=== PATIENT | female | born 1975 | race Caucasian/White ===

== ENCOUNTER 2018-04-06 07:12 | Emergency (ER) | payer BC ==
--- NOTE | 2018-04-06 07:21 | UC ---
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 She states post nasal dripping and bi-lat ear fullness. Denies fever or sinus and chest congestion Pleasant 43 yo female c/o progressive sore throat since Saturday (today is Saturday ). General malaise, feeling bad. No rash. Initially felt like irritation, but now feels like knife blades in throat. + post nasal drip. No rash. Mild cough, attributes to post nasal drip. No GI issues. + ear fullness / pressure. No vis changes. 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 - History of Current Complaint Stated Complaint: SORE THROAT Hx Obtained From: Patient - Allergies/Home Medications Allergies/Adverse Reactions: Allergies Allergy/AdvReac Type Severity Reaction Status Date / Time bacitracin Allergy Hives Verified 04/06/18 07:32 PMH/Surg Hx/FS Hx/Imm Hx Previously Healthy: Yes - Surgical History Surgical History: None - Family History Known Family History: Positive: None Review of Systems All Other Systems Reviewed And Are Negative: Yes Constitutional: Positive: Other - see hpi Skin: Positive: Negative Eyes: Positive: Other - see hpi ENT: Positive: Other - see hpi Respiratory: Positive: Other - see hpi Cardiovascular: Positive: Negative Gastrointestinal: Positive: Negative Genitourinary: Positive: Negative Motor: Positive: Negative Neurovascular: Positive: Negative Musculoskeletal: Positive: Negative Neurological: Positive: Negative Psychological: Positive: Negative Is Patient Immunocompromised?: No Physical Exam Triage Information Reviewed: Yes Appearance: Well-Nourished Vital Signs Reviewed: Yes Eye Exam: Normal ENT: Positive: Pharyngeal erythema - Post pharynx very red, nonpurulent. Uvula midline, mild edema, not obstructive. Tongue ok., Nasal congestion, TM dull - dull au Neck exam: Normal Neck: Positive: Supple, Nontender, No Lymphadenopathy Respiratory Exam: Normal Respiratory: Positive: Chest non-tender, Lungs clear, Normal breath sounds, No respiratory distress, No accessory muscle use Cardiovascular Exam: Normal Cardiovascular: Positive: RRR, No Murmur, Pulses Normal, Brisk Capillary Refill Abdominal Exam: Normal Abdomen Description: Positive: Nontender Musculoskeletal Exam: Normal - gait steady Neurological Exam: Normal - grossly nonfocal Psychological Exam: Normal - conversing easily and appropriately Throat Pain/Nasal Course/Dx - Course Course Of Treatment: RST negative. Does not think she has had mononucleosis, will check blood work. While sx could be viral related, the severity of redness and discomfort are concerning. Neg strep does not indicate neg other. Will start abx (azithromycin) plus 2 days prednisone. She will seek medical attention for worse problems or no improvement. Questions as posed answered to the best of my ability. - Differential Dx/Diagnosis Provider Diagnosis: Acute pharyngitis Discharge - Sign-Out/Discharge Documenting (check all that apply): Patient Departure All imaging exams completed and their final reports reviewed: No Studies - Discharge Plan Condition: Stable Disposition: HOME Prescriptions: Azithromycin 500 mg PO DAILY #5 tablet predniSONE [Prednisone 20 MG TAB] 20 mg PO DAILY #4 tablet Patient Education Materials: Pharyngitis (ED) Referrals: No Primary Care Phys,NOPCP [Primary Care Provider] - [facility] [place] [facility] [Outside] Additional Instructions: Please follow up with a primary care physician as soon as you are able. Seek medical attention for worse or new problems. Your strep throat test was negative. Mononucleosis blood testing was drawn today. - Billing Disposition and Condition Condition: STABLE Disposition: Home
[2018-04-06 07:32] VITALS: BP 129/68
--- NOTE | 2018-04-07 07:20 | UC ---
- Progress Note Progress Note: + mono Please call pt - supportive care motrin/apap hydrate no contact sports until recheck 04/07/18 Course/Dx - Diagnoses Provider Diagnoses: Acute pharyngitis Discharge - Sign-Out/Discharge Documenting (check all that apply): Post-Discharge Follow Up All imaging exams completed and their final reports reviewed: No Studies - Discharge Plan Condition: Stable Disposition: HOME Prescriptions: Azithromycin 500 mg PO DAILY #5 tablet predniSONE [Prednisone 20 MG TAB] 20 mg PO DAILY #4 tablet Patient Education Materials: Pharyngitis (ED) Referrals: [facility] [place] [facility] [Outside] No Primary Care Phys,NOPCP [Primary Care Provider] - Additional Instructions: Please follow up with a primary care physician as soon as you are able. Seek medical attention for worse or new problems. Your strep throat test was negative. Mononucleosis blood testing was drawn today. - Billing Disposition and Condition Condition: STABLE Disposition: Home
== END 2018-04-06 08:11 | disposition home or self-care (01) ==
LOC: MERGE 07:12 → EDSEX 07:12 → UCCORT 07:12
DX: J02.9 Acute pharyngitis, unspecified (principal); Z88.1 Allergy status to other antibiotic agents
CPT/HCPCS: 36415; 86308; 87651; 99212; G0463

== ENCOUNTER 2019-07-05 07:52 | Emergency (ER) | payer BC ==
--- OUTSIDE RECORDS SUMMARY | 2019-07-05 07:59 | XMS REPORT | Continuity of Care Document ---
:1975 External Reference #:[id number] Author Name Mariah Lopez PA (transmitted by agent of provider Jorgito Dow ) Address [address], [place] [address] [place] [address] Care Team Providers Name Role Phone Liliya Esposito MD, PHD - Family Care Team Information Hand Assembler [phone] Medicine Problems Description No Information Available Social History Type Date Description Comments Sex Unknown Tobacco Use Start: Unknown Never Smoked Cigarettes Smoking Status Reviewed: 04/14/19 Never Smoked Cigarettes ETOH Use Rarely consumes alcohol Tobacco Use Start: Unknown Patient denies history of smoking Recreational Drug Use Denies Drug Use Allergies, Adverse Reactions, Alerts Active Allergies Reaction Severity Comments Date Bacitracin Hives 04/10/2019 Medications Active Medications SIG Qnty Indications Ordering Provider Date D3 High Potency 1 caps by mouth 90caps Liliya Esposito, 04/16/2019 125mcg every day , PHD (5000 Ut) Capsules Ergocalciferol 1 cap by mouth 14caps E55.9 Liliya Esposito, 04/10/2019 1.25mg every week , PHD (60117 Ut) Capsules Magnesium Gluconate 1 tab by mouth 60tabs M62.838 Liliya Esposito, 2018 three times a , PHD 500(27mg) mg Tablets day as needed for muscle cramps G43.909 Aspirin 81 Low Dose 6 tab by mouth 90units G43.909 Liliya Esposito, 2018 first sign of , PHD 81mg Chewtabs migraine Co Q-10 Maximum 1 caps by mouth 90caps G43.909 Liliya Esposito, 04/10/2019 Strength every day , PHD 400mg Capsules Excedrin Migraine 1 tab by mouth 30tabs G43.909 Liliya Esposito, 2018 first sign of , PHD [phone] Tablets migraine Meloxicam Teddy Parker MD 15mg Tablets Immunizations Description No Information Available Vital Signs Date Vital Result Comment 04/14/2019 10:59am BP Systolic 134 mmHg BP Diastolic 76 mmHg Heart Rate 55 /min Height 65 inches 5'5" Weight 215.00 lb BMI (Body Mass Index) 35.8 kg/m2 BSA (Body Surface Area) 2.04 m2 Carrie body weight in kilograms 57 kg O2 % BldC Oximetry 100 % 04/10/2019 9:25am BP Systolic 138 mmHg BP Diastolic 75 mmHg Body Temperature 98.5 F Heart Rate 65 /min Respiratory Rate 16 /min Height 65 inches 5'5" Weight 215.00 lb BMI (Body Mass Index) 35.8 kg/m2 BSA (Body Surface Area) 2.04 m2 Carrie body weight in kilograms 57 kg O2 % BldC Oximetry 99 % Results Test Acquired Date Facility Test Result H/L Range Note CBC 04/10/2019 [facility] White Blood 8.3 K/uL Normal 3.1-10.7 1 W/Automated [address] [place] [address] [phone] Red Blood Count 4.50 M/uL Normal 3.90-5.40 Hemoglobin 11.4 gm/dL Low 11.6-15.8 Hematocrit 37.3 % Normal 36.0-46.1 Mean Cell Volume 82.9 fl Normal 80.9-99.0 Mean Corpuscular HGB 25.3 pg Low 25.9-32.7 Mean Corpuscular HGB Conc 30.6 g/dL Low 30.8-34.3 Platelet Count 350 K/uL Normal 155-360 Red Cell Distri Width SD 46.0 fl Normal 36-47 Red Cell Distri Width %CV 15.4 % High 11.7-14.4 Mean Platelet Volume 10.2 fl Normal 8.9-12.4 Neut% 74.2 % High 40.4-72.8 Lymph % 18.8 % Low 20.0-42.0 [place] % 4.7 % Normal 4.3-13.2 Eo% 1.3 % Normal 0.0-6.6 Bas% 0.6 % Normal 0.0-1.1 Immature Grans 0.4 % Normal 0.0-5.0 NRBC % 0.0 /100WBC < 10/ 100 WBC Neut# 6.12 K/uL Normal 1.8-7.0 Lymph # 1.55 K/uL Normal 1.0-4.0 [place] # 0.39 K/uL Normal 0.3-0.9 Eos # 0.11 K/uL Normal 0.0-0.5 Baso # 0.05 K/uL Normal 0.0-0.1 Immature Grans Absolute 0.03 K/uL NRBC # 0.00 K/uL Comprehensive 04/10/2019 [facility] Glucose 74 mg/dL Normal 74-106 Metabolic Panel [address] [place] [address] [phone] BUN 11 mg/dL Normal 7-18 Creatinine 1.0 mg/dL Normal 0.6-1.3 Glom Filtration Rate, Estimate >60 mL/min >60 If >60 mL/min >60 2 BUN/Creat 11.0 ratio Sodium 138 mmol/L Normal 136-145 Potassium 3.8 mmol/L Normal 3.5-5.1 Chloride 107 mmol/L Normal 98-107 Carbon Dioxide 26 mmol/L Normal 21-32 Anion Gap 5 mEq/L Low 8-16 Calcium 8.6 mg/dL Normal 8.5-10.1 Total Protein 7.5 g/dL Normal 6.4-8.2 Albumin 3.4 g/dL Normal 3.4-5.0 Globulin 4.1 g/dL Normal 1.9-4.3 Alb/Glob 0.8 ratio Bilirubin,Total 0.3 mg/dL Normal 0.2-1.0 Sgot/Ast 19 U/L Normal 15-37 SGPT/Alt 25 U/L Normal 12-78 Alkaline Phosphatase 53 U/L Normal 45-117 Glycohemoglobin 04/10/2019 [facility] Glycohemoglobin 5.3 % Normal 4.2-6.3 3 A1c [address] (A1c) [place] [address] [phone] eAG 105 mg/dL LDL Cholesterol Profile 04/10/2019 [facility] Cholesterol 166 mg/dL <200 4 [address] [place] [address] [phone] Triglycerides 105 mg/dL <150 5 HDL Cholesterol 55 mg/dL >40 6 LDL-Cholesterol 90 mg/dL < 100 7 Laboratory 04/10/2019 [facility] Vitamin 26.4 Low 30.0-100.0 8 test finding [address],25-Hydroxy ng/[place] [address] [phone] Thyroid Stim Hormone 1.90 uIU/mL Normal 0.30-4.20 1 Z00.00 Z13.1 Z13.220 E55.9 E07.9 2 Note: Persistent reduction for 3 months or more in an eGFR <60 mL/min/1.73 m2 defines CKD. Patients with eGFR values >/=60 mL/min/1.73 m2 may also have CKD if evidence of persistent proteinuria is present. The original MDRD equation for estimated GFR is not valid for patients less than 18 years of age. Additional information may be found at www.kdoqi.org. 3 Elevated levels of HbA1c suggest the need for more aggressive treatment of glycemia. The [place] Diabetes Association recommends that a primary goal of therapy should be a HbA1c of <7% and that physicians should re-evaluate the treatment regimen in patients with HbA1c values consistently >8%. 4 Reference Guidelines*: Desirable: ........... < 200 mg/dL Borderline High: ..... 200-239 mg/dL High: ................ >= 240 mg/dL * The National Cholesterol Education Program (NCEP) 5 Reference Guidelines*: Normal: ............. < 150 mg/dL Borderline High: .... 150-199 mg/dL High: ............... 200-499 mg/dL Very High: .......... > 500 mg/dL * Source: National Cholesterol Education Program (NCEP) 6 Reference Guidelines*: Low HDL: ..... < 40 mg/dL Normal: ..... 40-60 mg/dL Desirable: ... > 60 mg/dL *The National Cholesterol Education Program(NCEP) 7 Reference Guidelines*: Optimal:........... <100 mg/dL Near Optimal....... 100-129 mg/dL Borderline High.... 130-159 mg/dL High............... 160-189 mg/dL Very High.......... >=190 mg/dL * Source: National Cholesterol Education Program (NCEP) 8 Vitamin D deficiency has been defined by the [place] of Medicine and an Endocrine Society practice guideline as a level of serum 25-OH vitamin D less than 20 ng/mL (1,2). The Endocrine Society went on to further define vitamin D insufficiency as a level between 21 and 29 ng/mL (2). 1. IOM ([place] of Medicine). 2010. Dietary reference intakes for calcium and D. [place]: The National Academies Press. 2. Aubree MF, Blanca MAYA, Joyce ACOSTA, et al. Evaluation, treatment, and prevention of vitamin D deficiency: an Endocrine Society clinical practice guideline. JCEM. 2010; 96(7):1911-30. Performed at: RN - [facility] [address] [id number] [place] [employer] Tender: Jennifer He MD, Phone: [phone] Procedures Description No Information Available Medical Devices Description No Information Available Encounters Type Date Location Provider Dx Diagnosis Office Visit 04/14/2019 Surgical Office Mariah Lopez PA K80.00 Calculus of 10:30a gallbladder w acute cholecyst w/o obstruction Assessments Date Code Description Provider 04/14/2019 K80.00 Cholelithiasis without obstruction Mariah Lopez PA 04/10/2019 Z00.00 Encounter for general adult medical Liliya Esposito MD, PHD examination without abnormal findings 04/10/2019 M19.90 Unspecified osteoarthritis, unspecified Liliya Esposito MD, PHD site 04/10/2019 Z13.1 Encounter for screening for diabetes Liliya Esposito MD, PHD mellitus 04/10/2019 Z13.220 Encounter for screening for lipoid Liliya Esposito MD, PHD disorders 04/10/2019 E55.9 Vitamin D deficiency, unspecified Liliya Esposito MD, PHD 04/10/2019 E07.9 Disorder of thyroid, unspecified Liliya Esposito MD, PHD 04/10/2019 M62.838 Other muscle spasm Liliya Esposito MD, PHD 04/10/2019 G43.909 Migraine, unspecified, not intractable, Liliya Esposito MD, PHD without status migrainosus 04/10/2019 K80.00 Calculus of gallbladder with acute Liliya Esposito MD, PHD cholecystitis without obstruction 04/10/2019 Z68.35 Body mass index (BMI) 35.0-35.9, adult Liliya Esposito MD , PHD Plan of Treatment Future Appointment(s):06/09/2019 2:15 pm - Jorgito Dow M.D. at Surgical Office Functional Status Functional Condition Comment Date Status Independent with all ADL's Active Mental Status Description No Information Available Referrals Refer to Reason for Referral Status Appt Date Jorgito Dow MD Needs gallbladder removed due to Closed 2018 gallstones and symptomatic Cholecystitis. Would like to schedule over May school break. [address] [place] [address] [phone]
--- OUTSIDE RECORDS SUMMARY | 2019-07-05 07:59 | XMS REPORT | Continuity of Care Document ---
:1975 External Reference #:[id number] Author Name Jorgito Dow M.D. Address [address] [place] [address] Care Team Providers Name Role Phone Liliya Esposito MD, PHD - Family Care Team Information Gambreler Helper [phone] Medicine Problems Description No Information Available Social [...] Medications SIG Qnty Indications Ordering Provider Date Cholestyramine take 1-2 180units K80.20 Victor M, 06/09/2019 4gm packets by Jorgito Aiken Packet mouth mixed M.D. with liquid as needed when having fatty meal D3 High Potency 1 caps by 90caps Liliya Esposito, 04/16/2019 125mcg mouth every , PHD (5000 Ut) Capsules day Ergocalciferol 1 cap by mouth 14caps E55.9 Liliya Esposito, 04/10/2019 1.25mg every week , PHD (95244 Ut) Capsules Magnesium Gluconate 1 tab by [...] Esposito, 2018 first sign of , PHD [phone] Tablets migraine Meloxicam Teddy Parker MD 15mg Tablets Immunizations Description No Information Available Vital Signs Date Vital Result Comment 06/09/2019 2:15pm BP Systolic 127 mmHg BP Diastolic 75 mmHg Heart Rate 68 /min Height 65 inches 5'5" Weight 203.00 lb BMI (Body Mass Index) 33.8 kg/m2 BSA (Body Surface Area) 1.99 m2 [place] body weight in kilograms 57 kg O2 % BldC Oximetry 99 % 04/14/2019 10:59am BP Systolic 134 mmHg BP Diastolic 76 mmHg Heart Rate 55 /min Height 65 inches 5'5" Weight 215.00 lb BMI (Body Mass Index) 35.8 kg/m2 BSA (Body Surface Area) 2.04 m2 [place] body weight in kilograms 57 kg O2 % BldC Oximetry 100 % Results Test Acquired Date Facility Test Result H/L Range Note CBC 04/10/2019 [facility] White Blood 8.3 K/uL Normal 3.1-10.7 1 W/Automated [address] [place] [address] [phone] Red Blood Count 4.50 M/uL Normal 3.90-5.40 [...] 40.4-72.8 Lymph % 18.8 % Low 20.0-42.0 [place] % 4.7 % Normal 4.3-13.2 Eo% 1.3 % Normal 0.0-6.6 Bas% 0.6 % Normal 0.0-1.1 Immature Grans 0.4 % Normal 0.0-5.0 NRBC % 0.0 /100WBC < 10/ 100 WBC Neut# 6.12 K/uL Normal 1.8-7.0 Lymph # 1.55 K/uL Normal 1.0-4.0 [place] # 0.39 K/uL Normal 0.3-0.9 Eos # 0.11 K/uL Normal 0.0-0.5 Baso # 0.05 K/uL Normal 0.0-0.1 Immature Grans Absolute 0.03 K/uL NRBC # 0.00 K/uL Comprehensive 04/10/2019 [facility] Glucose 74 mg/dL Normal 74-106 Metabolic Panel [address] [place] [address] [phone] BUN 11 mg/dL Normal 7-18 Creatinine 1.0 [...] Phosphatase 53 U/L Normal 45-117 Glycohemoglobin 04/10/2019 [facility] Glycohemoglobin 5.3 % Normal 4.2-6.3 3 A1c [address] [facility] (A1c) [place] [address] [phone] eAG 105 mg/dL LDL Cholesterol Profile 04/10/2019 [facility] Cholesterol 166 mg/dL <[address] [place] [address] [phone] Triglycerides 105 mg/dL <150 5 HDL Cholesterol 55 mg/dL >40 6 LDL-Cholesterol 90 mg/dL < 100 7 Laboratory 04/10/2019 [facility] Vitamin 26.4 Low 30.0-100.0 8 test finding [address] D,25-Hydroxy ng/[place] [address] [phone] Thyroid Stim Hormone 1.90 uIU/mL Normal 0.30-4.20 [...] for more aggressive treatment of glycemia. The [place] Diabetes Association recommends that a primary goal [...] D deficiency has been defined by the [place] of Medicine and an Endocrine Society practice guideline as a level of serum 25-OH vitamin D less than 20 ng/mL (1,2). The Endocrine Society went on to further define vitamin D insufficiency as a level between 21 and 29 ng/mL (2). 1. IOM ([place] of Medicine). 2010. Dietary reference intakes for calcium and D. [place]: The National Academies Press. 2. Aubree MF, Blanca MAYA, Joyce ACOSTA, et al. Evaluation, treatment, and prevention of vitamin D deficiency: an Endocrine Society clinical practice guideline. JCEM. 2010; 96(7):1911-30. Performed at: RN - [facility] [address] [id number] [employer] Convertor Operator: Jennifer He MD, Phone: [phone] Procedures Date Code Description Status 05/26/2019 20038 Laparoscopy; cholecystectomy Completed Medical Devices Description No Information Available Encounters Type Date Location Provider Dx Diagnosis Office Visit 04/14/2019 Surgical Office Mariah Lopez PA K80.00 Calculus of 10:30a gallbladder w acute cholecyst w/o obstruction Assessments Date Code Description Provider 06/09/2019 K80.20 Calculus of gallbladder without Jorgito Dow M.D. cholecystitis without obstruction 05/26/2019 K80.20 Calculus of gallbladder without Jorgito Dow M.D. cholecystitis without obstruction 04/14/2019 K80.00 Cholelithiasis without obstruction Mariah Lopez PA 04/10/2019 Z00.00 Encounter for general adult medical Liliya Esposito MD, PHD examination without abnormal findings 04/10/2019 M19.90 Unspecified osteoarthritis, Liliya Esposito MD, PHD unspecified site 04/10/2019 Z13.1 Encounter for screening for Liliya Esposito MD, PHD diabetes mellitus 04/10/2019 Z13.220 Encounter for screening for lipoid Liliya Esposito MD, PHD disorders 04/10/2019 E55.9 Vitamin D deficiency, unspecified Liliya Esposito MD, PHD 04/10/2019 E07.9 Disorder of thyroid, unspecified Liliya Esposito MD, PHD 04/10/2019 M62.838 Other muscle spasm Liliya Esposito MD, PHD 04/10/2019 G43.909 Migraine, unspecified, not Liliya Esposito MD, PHD intractable, without status migrainosus 04/10/2019 K80.00 Calculus of gallbladder with acute Liliya Esposito MD, PHD cholecystitis without obstruction 04/10/2019 Z68.35 Body mass index (BMI) 35.0-35.9, Liliya Esposito MD, PHD adult Plan of Treatment 06/09/2019 - Jorgito Dow M.D.K80.20 Calculus of gallbladder without cholecystitis without obstructionNew Medication:Cholestyramine 4 gm - take 1-2 packets by mouth mixed with liquid as needed when having fatty mealComments:Occasional diarrhea.Vision changes, check blood sugar and report back to [facility].No fever. Anictericsclera. Overall doing well. Cholestyramine for fatty food associated diarrhea. Note for work provided. Satisfied with the open ended followup proposed. Feels much better now that the surgery has been done Functional Status Functional Condition Comment Date Status Independent with all ADL's Active Mental Status Description No Information Available Referrals Refer to Reason for Referral Status Appt Date Jorgito Dow MD Needs gallbladder removed due to Closed 2018 gallstones and symptomatic Cholecystitis. Would like to schedule over May school break. [place] [address] [phone]
[2019-07-05 08:02] VITALS: BP 132/69
--- NOTE | 2019-07-05 08:25 | UC ---
Complaint Female HPI - HPI Summary HPI Summary: 44 yo with several days of malaise, with onset of urinary frequency yesterday. No respiratory symptoms, cough or sore throat. Recent cholecystectomy about a month ago. Last UTI was over a year ago. - History Of Current Complaint Chief Complaint: UCGU Stated Complaint: URINARY COMPLAINT Hx Obtained From: Patient Hx Last Menstrual Period: 06/18/2019 Onset/Duration: Sudden Onset Timing: Intermittent Severity Initially: Mild Severity Currently: Mild Pain Intensity: 2 Character: Dull Aggravating Factor(s): Urination Alleviating Factor(s): Nothing - Risk Factors Ectopic Risk Factor: Negative Ovarian Torsion Risk Factor: Negative - Allergies/Home Medications Allergies/Adverse Reactions: Allergies Allergy/AdvReac Type Severity Reaction Status Date / Time MS Bacitracin [Bacitracin] Allergy Mild mild Verified 07/05/19 08:02 bacitracin Allergy Hives Verified 07/05/19 08:02 Home Medications: Home Medications Ibuprofen [Motrin Ib] 600 mg PO PRN 01/23/12 [History Confirmed 01/23/12] Nitrofurantoin Monohyd/M-Cryst [Macrobid 100 mg Capsule] 100 mg PO BID #14 cap 07/05/19 [Rx] PMH/Surg Hx/FS Hx/Imm Hx Previously Healthy: Yes - hx of osteoarthritis GI/ History: Gall Bladder Disease - Surgical History Surgical History: None Surgery Procedure, Year, and Place: FARHANA on L hip, tubal, x 1, ectopic , appy - Family History Known Family History: Positive: None - states negative family hx, no hx of renal stones or disease, Hypertension Negative: Renal Disease - Social History Occupation: Employed Full-time Lives: With Family Alcohol Use: Rare Substance Use Type: None Smoking Status (MU): Never Smoked Tobacco Review of Systems All Other Systems Reviewed And Are Negative: Yes Constitutional: Positive: Fatigue Skin: Positive: Negative Eyes: Positive: Negative ENT: Positive: Negative Respiratory: Positive: Negative Cardiovascular: Positive: Negative Gastrointestinal: Negative: Abdominal Pain, Vomiting, Diarrhea Genitourinary: Positive: Frequency, Urgency Motor: Positive: Negative Neurovascular: Positive: Negative Musculoskeletal: Positive: Negative Neurological/Mental Status: Positive: Negative Psychological: Positive: Negative Is Patient Immunocompromised?: No Physical Exam Triage Information Reviewed: Yes Appearance: Well-Appearing, No Pain Distress Vital Signs: Initial Vital Signs Temp 97.8 F 07/05/19 07:55 Pulse 65 07/05/19 07:55 Resp 18 07/05/19 07:55 BP 132/69 07/05/19 07:55 Pulse Ox 100 07/05/19 07:55 ENT: Positive: Normal ENT inspection Neck: Positive: Supple, Nontender, No Lymphadenopathy Respiratory: Positive: Lungs clear, Normal breath sounds, No respiratory distress Cardiovascular: Positive: RRR, No Murmur Abdomen Description: Positive: Nontender, No Organomegaly, Soft. Negative: CVA Tenderness (R), CVA Tenderness (L) Musculoskeletal Exam: Normal Neurological Exam: Normal Psychological Exam: Normal Skin Exam: Normal Diagnostics - Laboratory Lab Results: UA with rbc's only. Complaint Female Dx - Course Course Of Treatment: begin macrobid for possible urinary tract infection. - Differential Dx/Diagnosis Differential Diagnosis/HQI/PQRI: Urinary Tract Infection Provider Diagnosis: UTI (urinary tract infection) Discharge ED - Sign-Out/Discharge Documenting (check all that apply): Patient Departure All imaging exams completed and their final reports reviewed: No Studies - Discharge Plan Condition: Stable Disposition: HOME Prescriptions: Nitrofurantoin Monohyd/M-Cryst [Macrobid 100 mg Capsule] 100 mg PO BID #14 cap Patient Education Materials: Urinary Tract Infection in Women (ED) Forms: *Work Release Referrals: Liliya Esposito MD [Primary Care Provider] - Additional Instructions: Increase fluids, and begin treatment of suspected urinary infection with macrobid. Urine culture will be sent, and you will be notified if a change of treatment is needed. - Billing Disposition and Condition Condition: STABLE Disposition: Home
== END 2019-07-05 08:38 | disposition home or self-care (01) ==
LOC: UCCORT 07:52
DX: N39.0 Urinary tract infection, site not specified (principal); Z88.3 Allergy status to other anti-infective agents
CPT/HCPCS: 81003; 87077; 87086; 87186; 99212; G0463